=== PATIENT | female | born 1955 | race Two or more races ===

== ENCOUNTER 2025-11-17 21:46 | Emergency (ER) | payer OTHER ==
[~2025-11-17] VITALS: Ht 157.5 cm; Wt 68.0 kg
[2025-11-17] MEDS ORDERED: PROZAC10 MG (22:01)
[2025-11-17] MEDS ORDERED: CLONAZEPAM0.5 MG (22:01)
[2025-11-17] MEDS ORDERED: PEPCID AC10 MG (22:02)
[2025-11-17] MEDS ORDERED: MORPHINE SULFATE 4 MG/ML VIAL IV STA (22:04)
[2025-11-17] MEDS ORDERED: 0.9 % SODIUM CHLORIDE 1,000 ML IV STA ×2 (22:05→22:07)
[2025-11-17] MEDS ORDERED: ONDANSETRON HCL 2 MG/ML VIAL IV STA (22:06)
[2025-11-17] MEDS ORDERED: FAMOTIDINE/PF 20 MG/2 ML VIAL IV STA (22:06)
[2025-11-17] MEDS ORDERED: FAMOTIDINE/PF 20 MG/2 ML VIAL ONE ×2 (23:28→23:33)
[2025-11-17] MEDS ORDERED: ONDANSETRON HCL 2 MG/ML VIAL ONE ×2 (23:28→23:32)
[2025-11-17 23:56] LABS: BASO % 0.2 % (0.1-1.2); EOS # 0.02 (0.04-0.54); EOS % 0.2 % (0.7-7.0); LYMPH # 1.76 (1.18-3.74); LYMPH % 13.8 % (19.3-53.1); MEAN PLATELET VOLUME 11.20 fl (9.4-12.4); MONO # 0.54 (0.24-0.82); MONO % 4.2 % (4.7-12.5); NEUT # 10.36 (1.56-6.13); NEUT % 81.3 % (34.0-71.1); RED CELL DISTRIBUTION WIDTH 13.6 % (11.6-14.4)
[2025-11-18 00:30] LABS: ALT/SGPT 22.0 U/L (12-78); AST/SGOT 14.0 U/L (15-37); BILIRUBIN TOTAL 1.4 mg/dL (0.3-1.2); BUN CREA RATIO 10.0 (7.0-25.0); CREATININE SERUM 1.02 mg/dL (0.55-1.02); GFR 53.73; GLOBULINA 3.2 G/DL (2.4-3.5); GLUCOSE FASTING 144.0 mg/dL (65-100); OSMOLALITY SERUM 290.0 MOSM/KG (275-295)
[2025-11-18 02:46] LABS: URINE APPEARANCE Clear; URINE BILIRRUBIN Negative (NEGATIVE); URINE COLOR Yellow; URINE LEUKOCYTE Negative; URINE NITRATE Negative; URINE PROTEIN Trace (NEGATIVE); URINE UROBILINOGEN 0.2 E.U./dl
[2025-11-18 02:50] LABS: URINE BACTERIA 68.6 uL (0.0-1933); URINE EPITHELIAL CELLS 2.7 uL (0.0-38.8); URINE RBC 26.7 uL (0.0-20.8); URINE WBC 5.2 uL (0.0-23.2)
[2025-11-18 03:11] LABS: URINE CAST 0.28 uL (0.0-1.40); URINE GLUCOSE 100 MG/DL (NEGATIVE); URINE KETONE 40 (NEGATIVE)
[2025-11-18 03:12] LABS: URINE BLOOD TRACES
[2025-11-18] MEDS ORDERED: KETOROLAC TROMETHAMINE 30 MG VIAL ONE (03:22)
[2025-11-18] MEDS ORDERED: KETOROLAC TROMETHAMINE 30 MG VIAL IV ONE (04:00)
[2025-11-18] MEDS ORDERED: MORPHINE SULFATE 4 MG/ML VIAL IV STA (05:29)
[2025-11-18] MEDS ORDERED: PROMETHAZINE HCL 25 MG/ML AMPUL IM STA (05:29)
[2025-11-18] MEDS ORDERED: PROMETHAZINE HCL 25 MG/ML AMPUL ONE (05:50)
[2025-11-18] MEDS ORDERED: MORPHINE SULFATE 4 MG/ML CARTRIDGE IV ONE (11:30)
== END 2025-11-18 12:45 | disposition home or self-care (01) ==
LOC: ER 21:46
PROVIDERS: General Practice
DX: R19.09 Other intra-abdominal and pelvic swelling, mass and lump (principal); D25.9 Leiomyoma of uterus, unspecified; Z88.2 Allergy status to sulfonamides; I70.8 Atherosclerosis of other arteries
CPT/HCPCS: 36415; 74177; 76830; 96365; 96366; 99284; J1885; J2250; J2270; J2405; J3490; J7030; Q9965